=== PATIENT | female | born 1955 | race Caucasian/White ===

== ENCOUNTER 2018-04-28 15:09 | Emergency (ER) | payer OTHER ==
--- OUTSIDE RECORDS SUMMARY | 2018-04-28 15:27 | XMS REPORT | Continuity of Care Document ---
:1955 External Reference #:[id number] Author Name Rut Glez Care Team Providers Name Role Phone Hood Sparrow MD Care Team Information Trains Dispatcher Supervisor Unavailable Shailesh Haque MD Primary Care Physician Unavailable Payers Type Date Identification Numbers Payment Provider Subscriber Policy Number: [id number] [employer] Luda Engle PayID: [id number] [address] [place] [address] Policy Number: [id number] [facility] Luda Engle PayID: [id number] [address] [place] [address] Advance Directives Description No Information Available Problems Date Description Provider Status Onset: 04/20/2016 Acquired spondylolisthesis Dylan Adrian M.D. Active Family History Date Family Member(s) Problem(s) Comments Father due to Cancer () - age 62 Mother due to Unknown Causes () - age 74 First Son due to Heart Attack () - age 35 First Daughter due to Diabetes () - age 27 Social History Type Date Description Comments Sex Unknown Marital Status Home Environment Lives With Occupation Disabled Work Status Disabled Tobacco Use Start: Unknown Heavy tobacco smoker (more than 10 cigarettes/day) Smoking Status Reviewed: 02/23/18 Heavy tobacco smoker (more than 10 cigarettes/day) ETOH Use Denies alcohol use Tobacco Use Start: Unknown Patient is a current smokes a ppd x 43 smoker, smokes every years day Recreational Drug Use Denies Drug Use Exercise Type/Frequency Does not exercise Allergies, Adverse Reactions, Alerts Date Description Reaction Status Severity Comments 02/02/2016 Penicillin Active Medications Medication Date Status Form Strength Qnty SIG Indications Ordering Provider Ciplance 02/23 Active Tablets 500mg 5tabs 1 tablet by H00.015 Renzo mouth daily MD Tomasz for 5 days Ventolin HFA 08/01 Active Aerosol 108(90Bas 8.5un take 2 puffs J44.9 e) its every 6 hours MD Rashaun mcg/Act as needed for shortness of breath. Oxygen 08/01 Active Oxygen concentrator MD Rashaun with portability. 2 L/min with activity and at night. Patient is mobile in home. Diagnosis: COPD Gabapentin Active Capsules 300mg 3 caps po 3 Unknown /0000 times a day Spiriva Active Aerosol 2.5mcg/Ac take 2 puffs Unknown Respimat / t once daily. Symbicort Active Aerosol 160-4.5mc 2 puff twice Unknown /0000 g/Act a day Cipro 02/23 Hx Tablets 500mg 5tabs 1 tablet by H00.015 Renzo mouth daily MD Tomasz - for 5 days 02/23 Ofloxacin 11/02 Hx Solution 0.3% 1unit 1 drop left H25.813 Renzo (Ophthalmic) s eye four MD Tomasz - times daily 11/30 for 10 days beginning three days before surgery Prednisolone 11/02 Hx Suspension 1% 5ml 1 drop left H25.813 Renzo Acetate eye four MD Tomasz - times daily 12/20 for four weeks; please begin after surgery Ketorolac 11/02 Hx Solution 0.5% 5ml 1 drop H25.813 Renzo Tromethamine operative eye MD Tomasz - 4 times daily 12/20 for 2 weeks please begin 3 days prior to operation Erythromycin 02/18 Hx Ointment 5mg/GM 3.500 thin ribbon D49.2 Renzo gm left eye 3 MD Tomasz - times daily 04/19 for 3 days Folic Acid Hx Tablets 1mg Deuce, Mitchel JASMINE Meloxicam Hx Tablets 7.5mg Take One Unknown /0000 Tablet By - Mouth Every Methotrexate Hx Tablets 2.5mg Take Four Unknown /0000 Tablets By - Mouth Every 04/19 Gabapentin Hx Capsules 300mg James, MD Efe - 04/19 Metformin HCL Hx Tablets 500mg Speichpedro luis, /0000 Marylin Guillen, 04/19 F.N.P. Citalopram Hx Tablets 40mg Raymon, Hydrobromide /0000 MD Dontrell - 04/19 Atorvastatin Hx Tablets 10mg Speicher, Calcium / Marylin Guillen, 04/19 F.N.P. Phenobarbital Hx Tablets 32.4mg Raymon, / MD Dontrell - 04/19 Atrovent HFA Hx Aerosol 17mcg/Act 2 puffs 3 Unknown /0000 times a day Diclofenac Hx Tablets 50mg 1 tab by Unknown Potassium /0000 mouth two to three times a day as needed for back pain Immunizations Description No Information Available Vital Signs Date Vital Result Comment 08/01/2016 2:18pm BP Systolic Sitting Right Arm 118 mmHg BP Diastolic Sitting Right Arm 96 mmHg Heart Rate 96 /min Respiratory Rate 16 /min Height 63 inches 5'3" Weight 158.00 lb BMI (Body Mass Index) 28.0 kg/m2 BSA (Body Surface Area) 1.75 m2 O2 % BldC Oximetry 92 % Room Air 04/20/2016 2:45pm BP Systolic 135 mmHg BP Diastolic 80 mmHg Heart Rate 87 /min Height 63 inches 5'3" Weight 154.00 lb BMI (Body Mass Index) 27.3 kg/m2 BSA (Body Surface Area) 1.73 m2 [place] body weight in kilograms 52 kg Results Test Date Facility Test Result H/L Range Note BUN 02/08/2016 [facility] BUN 11 mg/dL N 7-18 [address] [place] [address] [phone] @[facility] Pat Id: [id number] @EMR Req #: [id number] Creatinine 02/08/2016 [facility] Creatinine 0.6 mg/dL N 0.6-1.3 [address] [place] [address] [phone] @[facility] Pat Id: [id number] @EMR Req #: [id number] 1 H05.242 Procedures Date Code Description Status 02/23/2018 91268 Eye Exam Est Patient Comprehensive Completed 11/22/2017 80227 Extracapsular Cataract Removal W/Insertion Of Intraocular Completed Lens pr 11/02/2017 73227 A-Scan W/Iol Power Calculation Completed 10/24/2017 07726 Eye Exam Est Patient Comprehensive Completed 02/19/2016 67873 Exc Of Les.Of Eyelid W/O Closure Or With A Simple Direct Completed Closure 02/02/2016 83524 Eye Exam New Patient Comprehensive Completed Encounters Type Date Location Provider Dx Diagnosis Office Visit 08/01/2016 Pulmonology Rashaun Torres MD J44.9 Chronic obstructive 2:00p pulmonary disease, unspecified F17.210 Nicotine dependence, cigarettes, uncomplicated Z71.6 Tobacco abuse counseling Z01.811 Encounter for preprocedural respiratory examination Office Visit 04/20/2016 Orthopaedic Nugyễn, M43.07 Spondylolysis, 2:30p Office Sammy Richardson lumbosacral region Plan of Treatment 02/23/2018 - Tomasz Muller MDH00.015 Hordeolum externum left lower eyelidNew Medication:Cipro 500 mg - 1 tablet by mouth daily for 5 daysCipro 500 mg - 1 tablet by mouth daily for 5 daysComments:- warm compresses: wash cloth, warm water 4 times daily on the left lower eyelid- artificial tears can help soothe the eye- neomycin/polymyxin/dexamethasone 1 drop left eye four times daily for 1 week- pt called 03/02/18; reported it has resolved; will send to dr coulter as upcoming surgeryFollow up:1 week return visit
[2018-04-28 15:35] VITALS: BP 121/77
--- NOTE | 2018-04-28 15:44 | UC ---
General HPI - HPI Summary HPI Summary: 1.5 MONTH HX OF RASH THAT BEGAN ON LEGS THEN UNDER BELLY AND FEW SPOTS OF ARMS. DENIES ANY PAIN OR ITCH. NO FEVER. SELF TX TOPICAL ANTIBIOTIC WITH NO RELIEF. DENIED ANY ILLNESS AT ONSET BUT LATER RECALLED A "VIRAL GI BUG". - History of Current Complaint Chief Complaint: UCSkin Stated Complaint: SKIN CONCERN Time Seen by Provider: 04/28/18 15:30 Hx Obtained From: Patient Hx Last Menstrual Period: n/a Onset/Duration: Gradual Onset Timing: Constant Pain Intensity: 0 Associated Signs & Symptoms: Negative: Fever - Allergy/Home Medications Allergies/Adverse Reactions: Allergies Allergy/AdvReac Type Severity Reaction Status Date / Time Penicillins Allergy Hives Verified 04/28/18 15:27 PMH/Surg Hx/FS Hx/Imm Hx - Additional Past Medical History Additional PMH: ARTHRITIS SPINE, BORDERLINE DIABETES. Other History Of: Negative For: HIV, Hepatitis B, Hepatitis C - Surgical History Surgical History: Yes Surgery Procedure, Year, and Place: BRAIN/SKULL- CSF LEAKAGE- 1991 & 1995- PATCHED WITH GRAFTING OF OWN BONE ( CLEARED BY VIA CT HEAD 09/2010); APPENDECTOMY; Tubal ligation; Cataract Surgery - Family History Known Family History: Positive: Cardiac Disease, Renal Disease - Social History Alcohol Use: None Substance Use Type: None Smoking Status (MU): Heavy Every Day Tobacco Smoker Type: Cigarettes Amount Used/How Often: 2 ppd Length of Time of Smoking/Using Tobacco: ~ 45 years - Immunization History Most Recent Influenza Vaccination: 01/2015 Most Recent Pneumonia Vaccination: 2015 Review of Systems All Other Systems Reviewed And Are Negative: Yes Constitutional: Positive: Negative Skin: Positive: Rash Eyes: Positive: Negative ENT: Positive: Negative Respiratory: Positive: Negative Cardiovascular: Positive: Negative Gastrointestinal: Positive: Negative Genitourinary: Positive: Negative Motor: Positive: Negative Neurovascular: Positive: Negative Musculoskeletal: Positive: Arthralgia - BACK Neurological: Positive: Negative Psychological: Positive: Negative Physical Exam Triage Information Reviewed: Yes Appearance: Well-Appearing Vital Signs: Initial Vital Signs Temp 98.2 F 04/28/18 15:28 Pulse 83 04/28/18 15:28 Resp 16 04/28/18 15:28 BP 121/77 04/28/18 15:28 Pulse Ox 94 04/28/18 15:28 Vital Signs Reviewed: Yes Eyes: Positive: Conjunctiva Clear ENT: Positive: Normal ENT inspection Neck: Positive: Supple Respiratory: Positive: Lungs clear, Normal breath sounds Cardiovascular: Positive: RRR, No Murmur Abdomen Description: Positive: Nontender, No Organomegaly, Soft Bowel Sounds: Positive: Present Musculoskeletal: Positive: ROM Intact Neurological: Positive: Alert Psychological: Positive: Age Appropriate Behavior Skin Exam: Normal Skin: Positive: Rashes - MULTIPLE 1CM OR LESS SPOTS THAT ARE PLAQUES ON PINK BASE MOSTLY TO LEGS AND FEW SPOTS ON ARMS. AREA UNDER PANNUS IS MORE CONFLUENT. NONE ARE VESICULAR OR BLISTERING. Course/Dx - Course Course Of Treatment: HX AND PE D/W DR COPE WHO EXAMINED RASH AND DX GUTTATE PSORIASIS AND SUGGESTS TOPICAL HIGH DOSE STEROID FOR AREAS THAT CAUSE LOCAL IRRITATION. WILL REFER TO DERMATOLOGY WELL. NO CONCERN FOR SECONDARY BACTERIAL INFECTION. - Diagnoses Provider Diagnosis: Guttate psoriasis Discharge - Sign-Out/Discharge Documenting (check all that apply): Patient Departure All imaging exams completed and their final reports reviewed: No Studies - Discharge Plan Condition: Stable Disposition: HOME Prescriptions: Triamcinolone 0.5% CREAM(NF) [Kenalog Cream 0.5%(NF)] 1 applic TOPICAL BID PRN 14 Days #60 gm PRN Reason: Itching Patient Education Materials: Psoriasis (ED) Referrals: Meir Rothman [Primary Care Provider] - If Needed Connie Orourke [Medical Doctor] - 7 Days - Billing Disposition and Condition Condition: STABLE Disposition: Home
== END 2018-04-28 16:00 | disposition home or self-care (01) ==
LOC: UCCORT 15:09
DX: L40.4 Guttate psoriasis (principal); Z88.0 Allergy status to penicillin; R73.03 Prediabetes; F17.210 Nicotine dependence, cigarettes, uncomplicated
CPT/HCPCS: 99212; G0463